=== PATIENT | female | born 1950 | race Caucasian/White ===

== ENCOUNTER 2021-05-23 11:20 | Emergency (ER) | payer OTHER, SELFPAY ==
--- NOTE | ~2021-05-23 | XR_ITS ---
EXAMINATION: XR chest 2V DATE: 05/23/2021 12:04 INDICATION: Cough. TECHNIQUE: Frontal and lateral views of the chest were obtained. COMPARISON: CT abdomen 05/27/2005 FINDINGS: A calcified right lung nodule is consistent with old granulomatous disease. No pleural effu chao or pneumothorax. The heart size is normal. There is a small hiatal hernia. IMPRESSION: 1. Small hiatal hernia. Reviewed, dictated and finalized at location A. IMPRESSION: 1. Small hiatal hernia.
[2021-05-23 11:28] VITALS: BP 151/78; PULSE 80; RESP 16; TEMP 37.3; O2SAT 98
[2021-05-23 11:35] VITALS: BP 151/78; PULSE 80; RESP 16; TEMP 37.3; O2SAT 98
--- NOTE | 2021-05-23 11:47 | ED.GENADULT ---
HPI - General Adult General Chief complaint: Upper Respiratory Infection Stated complaint: vomiting/uri/abd pain Source: patient Mode of arrival: ambulatory Limitations: no limitations History of Present Illness HPI narrative: Patient presents for evaluation of respiratory symptoms. She initially experienced rhinorrhea and then developed a productive cough of yellow sputum. She has associated shortness of breath. She has experienced fever, chills, nausea, vomiting, chest tightness and generalized body aches. She denies chest pain per se. She has some chronic bilateral ear pain, which is unchanged. She states her grandkids have been sick with what was thought to be viral illness. Pt states she had COVID at the beginning of the pandemic. She thinks she may have the flu. She took some Juliette [place]on cold medication which has helped somewhat. Reports sleeping for almost 24 hrs straight due to fatigue. Related Data Home Medications Medication Instructions Recorded Confirmed citalopram mg 05/23/21 ergocalciferol (vitamin D2) 05/23/21 Allergies Allergy/AdvReac Type Severity Reaction Status Date / Time codeine Allergy Mild Nausea and Verified 03/25/15 16:50 Vomiting Sulfa (Sulfonamide Allergy Mild Hives / Verified 03/25/15 16:50 Antibiotics) Red Face Review of Systems Review of Systems: CONSTITUTIONAL: Reports fever and chills.. EYES: Denies visual changes, redness, or discharge. ENT: Reports sinus congestion and rhinorrhea. Reports chronic otalgia CARDIOVASCULAR: Reports chest tightness. Denies chest pain, palpitations, or edema. RESPIRATORY: Reports productive cough of yellow sputum with shortness of breath. GASTROINTESTINAL: Reports nausea and vomiting. Reports recent diarrhea, now resolved. Reports suprapubic pain. GENITOURINARY: Reports urinary frequency. Denies dysuria or hematuria. SKIN: Denies rash or itching. MUSCULOSKELETAL: Reports generalized body aches. NEUROLOGIC: Denies headache, numbness, dizziness, or weakness. PSYCHIATRIC: Denies anxiety or depression. FOR[facility]LY [facility] Past Medical History Medical History (Updated 05/23/21 @ 12:47 by Nelson Hope, KAMILA, YOSEF) Anxiety History of pitts Vitamin D deficiency Surgical History Surgical History History of skin graft Family History Family History Mother COPD (chronic obstructive pulmonary disease) Father COPD (chronic obstructive pulmonary disease) Social History Social History (Updated 05/23/21 @ 11:50 by KAMILA Lamb, ) Substance use: never Living arrangements: with family Gender identity (if verbalized by the patient): Female Sexual Orientation (if Verbalized by the Patient): Straight or Heterosexual Spiritual care concerns: No Exam Narrative: GENERAL: Well-appearing, well-nourished, and in no acute distress. HEAD: Normocephalic, atraumatic. EYES: PERRLA and EOMI. ENT: Nares clear, no rhinorrhea or epistaxis. Mucous membranes moist. Oropharynx without tonsillar hypertrophy exudate or other lesions. There is posterior pharyngeal erythema. Bilateral TMs erythematous NECK: Supple. No adenopathy or masses. No carotid bruits or JVD CHEST: Rales and wheezing noted in bilateral lung ramirez posteriorly HEART: Regular rate and rhythm. No murmur heard. Normal peripheral pulses. ABDOMEN: Soft, nontender, nondistended, normal active bowel sounds. EXTREMITIES: Normal range of motion. No edema. SKIN: Warm, dry, no rash. NEURO: No focal deficits. Alert and oriented x3. PSYCH: Normal mood and affect. Course Course Emergency Course: This is a 71-year-old female who presented with complaints of respiratory symptoms. Covid was negative. Chest x-ray with no evidence of infiltrate. Influenza A was positive. Will discharge with Tamiflu. She has taken it in the past which has been effective for her. I
[2021-05-23] MEDS: ALBUTEROL SULFATE NEB 2.5 MG/3 ML INH INHALATION (12:04)
[2021-05-23] MEDS: IPRATROPIUM BR 0.02% INH SOLN 0.5 MG/2.5 ML VIAL INHALATION (12:04)
== END 2021-05-23 12:51 | disposition home or self-care (01) ==
PROVIDERS: Emergency Provider Nurse Practitioner
DX: J10.1 Influenza due to other identified influenza virus with other respiratory manifestations (principal); N39.0 Urinary tract infection, site not specified; Z20.822 Contact with and (suspected) exposure to COVID-19; E55.9 Vitamin D deficiency, unspecified; F41.9 Anxiety disorder, unspecified
CPT/HCPCS: 71046; 81003; 87086; 87088; 87426; 87804; 94640; 99213; C9803; G0463